=== PATIENT | male | born 1950 | race Caucasian/White ===

== ENCOUNTER 2020-12-01 09:47 | Observation (INO) | payer BC, MEDICARE ==
[~2020-12-01] VITALS: Ht 170.2 cm; Wt 77.1 kg
[2020-12-01 11:36] LABS: HEMOGLOBIN 15.5 gm/dl (14.0-17.5); RED BLOOD COUNT 4.77 M/UL (4.20-5.50); WHITE BLOOD COUNT 6.6 K/UL (4.5-11.0)
[2020-12-01 12:45] LABS: BUN/CREATININE RATIO 22 (0-10)
[2020-12-01] MEDS ORDERED: TRAZODONE HCL50 MG PO (14:06)
[2020-12-01] MEDS ORDERED: ASPIRIN81 MG PO (14:06)
[2020-12-01] MEDS ORDERED: ALPRAZOLAM0.5 MG PO (14:06)
[2020-12-02 06:49] LABS: HEMOGLOBIN 14.8 gm/dl (14.0-17.5); RED BLOOD COUNT 4.77 M/UL (4.20-5.50); WHITE BLOOD COUNT 7.3 K/UL (4.5-11.0)
[2020-12-03] MEDS ORDERED: HYGROTON TAB 2525 MG PO (14:28)
[2020-12-03] MEDS ORDERED: LOPRESSOR 25 MG25 MG PO (14:28)
[2020-12-03] MEDS ORDERED: AMLODIPINE BESYL5 MG PO (14:28)
[2020-12-03] MEDS ORDERED: LISINOPRIL40 MG PO (14:28)
[2020-12-03] MEDS ORDERED: NITROGLYCERIN0.4 MG SL (14:28)
[2020-12-03] MEDS ORDERED: ATORVASTATIN CA20 MG PO (14:28)
--- NOTE | 2020-12-03 16:15 | NUR ---
15ml of air removed from tr band. left in place during transport and syringe sent with nurse, just in case bleeding occurred during transport.
== END 2020-12-03 16:40 | disposition short-term general hospital (02) ==
LOC: ER1 09:47 → CDU 13:14 → M/S 13:14
PROVIDERS: Nurse Practitioner; Physician Assistant Medical; ADMIT Internal Medicine
PROC: 4A023N7 Measurement of Cardiac Sampling and Pressure, Left Heart, Percutaneous Approach (ICD-10-PCS; principal; 2020-12-03)
PROC: B2111ZZ Fluoroscopy of Multiple Coronary Arteries using Low Osmolar Contrast (ICD-10-PCS; 2020-12-03)
DX: I25.119 Atherosclerotic heart disease of native coronary artery with unspecified angina pectoris (principal); I16.0 Hypertensive urgency; I10 Essential (primary) hypertension; F41.9 Anxiety disorder, unspecified; F32.A Depression, unspecified; Z20.822 Contact with and (suspected) exposure to COVID-19; Z87.891 Personal history of nicotine dependence; Z79.82 Long term (current) use of aspirin; Z79.899 Other long term (current) drug therapy
CPT/HCPCS: ECHO; 36415; 70450; 71045; 78452; 80048; 80053; 80061; 82550; 82553; 83735; 83874; 83880; 84484; 85025; 85027; 85610; 93005; 93306; 96374; 96375; 99152; 99153; 99285; A9502; C1769; C1887; C1894; G0378; J0360; J1644; J2250; J2405; J2785; J3010; J7040; Q9965; U0002